=== PATIENT | female | born 1955 | race Caucasian/White ===

== ENCOUNTER 2021-06-18 18:52 | Emergency (ER) | payer OTHER, SELFPAY ==
--- NOTE | 2021-06-18 19:04 | ED.WOUNDLAC ---
HPI - Wound/Laceration General Chief Complaint: Wound/Laceration Stated Complaint: Laceration on right knee Time Seen by Provider: 06/18/21 19:05 Source: patient and RN notes reviewed Mode of arrival: ambulatory Limitations: no limitations History of Present Illness HPI narrative: 68-year-old female presents to the [facility] with with a 1 cm laceration to the mid anterior cotton. States that she was walking at a [employer] when she tripped and fell landing on her knees. Bleeding is controlled. Related Data Home Medications Medication Instructions Recorded Confirmed Novolin L 06/18/21 alprazolam 06/18/21 atorvastatin 20 mg PO DAILY 06/18/21 06/18/21 buspirone mg 06/18/21 estradiol 06/18/21 gabapentin 06/18/21 glipizide 10 mg PO BID 06/18/21 06/18/21 insulin glargine [Basaglar KwikPen 10 unit SUBCUT BID 06/18/21 06/18/21 U-100 Insulin] lamotrigine 100 mg PO BID 06/18/21 06/18/21 metformin 500 mg PO BID 06/18/21 06/18/21 metoprolol tartrate 25 mg PO BID 06/18/21 06/18/21 montelukast 10 mg PO DAILY 06/18/21 06/18/21 pantoprazole 40 mg PO DAILY 06/18/21 06/18/21 quetiapine 100 mg PO BID 06/18/21 06/18/21 sertraline 100 mg PO DAILY 06/18/21 06/18/21 trazodone 50 mg PO TID 06/18/21 06/18/21 zolpidem 10 mg PO HS PRN 06/18/21 06/18/21 Allergies Allergy/AdvReac Type Severity Reaction Status Date / Time No Known Allergies Allergy Verified 06/18/21 19:17 Review of Systems Review of Systems: All systems reviewed & are unremarkable except as noted in HPI and below Constitutional: Constitutional: Reports no additional constitutional complaints Eyes: Eyes: Reports no additional eye complaints ENT: Reports system reviewed and no additional complaints, except as documented Cardiovascular: Cardiovascular: Reports no additional cardiovascular complaints Respiratory: Respiratory: Reports no additional respiratory complaints Gastrointestinal: Gastrointestinal: Reports no additional gastrointestinal complaints and Denies abdominal pain Musculoskeletal: Musculoskeletal: Reports as per HPI and Reports arthralgias (Bilateral knees) Integumentary/Breasts: Skin/Breast: Reports as per HPI Comments: Laceration left anterior cotton Neurologic: Reports system reviewed and no additional complaints, except as documented Psychiatric: Psychiatric: Reports no additional psychiatric complaints Allergic/Immunologic: Allergic/Immunologic: Reports no additional allergic/immunologic complaints PMFSH Past Medical History Medical History Anxiety Bipolar 1 disorder Depression H/O gastroesophageal reflux (GERD) High cholesterol Type 2 diabetes mellitus Surgical History Surgical History (Updated 06/18/21 @ 19:50 by Christina Rich) No significant past surgical history Social History Social History (Updated 06/18/21 @ 19:50 by Christina Rich) Living arrangements: with family Gender identity (if verbalized by the patient): Female Comments At the time of my signature, I reviewed and agree with the nursing past medical, surgical, social, and family history. There is no relevant family history pertinent to the patient complaint. Exam Const: General: no acute distress, alert and ill appearing chronically Nutritional Appearance: well nourished Orientation/consciousness: patient oriented x3 Limitations: no limitations HENMT: Head: normal to inspection Ears: external ears normal Eyes: Pupils: Equal, round and reactive pupils present Neck: Neck: normal visual inspection, no lymphadenopathy and no meningeal signs Chest: Chest palpation & inspection: normal inspection of the chest Resp: Effort & Inspection: normal respiratory effort Cardio: Rate: regular rate Back/Spine/Pelvis: Back: no CVA tenderness Skin: Wounds: wounds noted flap right anterior lower leg size (1 cm), drainage serosanguinous and open; without any surrounding erythema Neuro: General: patient orien
[2021-06-18 19:18] LABS: Glucose Point of Care 158 mg/dl (65-105)
[2021-06-18 19:24] VITALS: BP 179/90; PULSE 68; RESP 20; TEMP 36.8; O2SAT 100
[2021-06-18] MEDS: TETANUS,DIPHTHERIA,AC PERTUSSIS ADULT (0.5 ML) BOOSTRIX IM (19:38)
== END 2021-06-18 19:58 | disposition home or self-care (01) ==
PROVIDERS: Emergency Provider Nurse Practitioner
DX: S81.811A Laceration without foreign body, right lower leg, initial encounter (principal); S80.211A Abrasion, right knee, initial encounter; E11.9 Type 2 diabetes mellitus without complications; Z79.4 Long term (current) use of insulin; Z23 Encounter for immunization; W19.XXXA Unspecified fall, initial encounter
CPT/HCPCS: 12001; 82948; 90471; 90715; 99202; G0463